=== PATIENT | female | born 1955 | race Caucasian/White ===

== ENCOUNTER → 2025-04-24 12:58 | Outpatient (REF) | payer MEDICARE, OTHER, SELFPAY | LOC: RAD 12:58 | PROVIDERS: ATTENDING PHYSICIAN Surgery Vascular Surgery; OTHER PHYSICIAN Physician Assistant | DX: Z01.818 Encounter for other preprocedural examination (principal); I73.9 Peripheral vascular disease, unspecified; R60.0 Localized edema | CPT/HCPCS: 93922; 93925; 93970; 93985 ==